=== PATIENT | female | born 1955 | race African-American/Black ===

== ENCOUNTER 2019-04-23 10:42 | Outpatient (CLI) | payer OTHER ==
--- NOTE | 2019-04-23 11:29 | MMO ---
Bilateral MAMMO Bilat Screen [facility]. CLINICAL HISTORY: Patient is 63 years old and is seen for screening. The patient has the following family history of breast cancer: maternal grandmother, malignant (generic) and maternal aunt, malignant (generic). The patient has no personal history of cancer. The patient has a history of right Excisional Biopsy more than 10 years ago - benign and left Excisional Biopsy more than 10 years ago - benign. VIEWS: The views performed were: bilateral craniocaudal with tomosynthesis and bilateral mediolateral oblique with tomosynthesis. FILMS COMPARED: The present examination has been compared to prior imaging studies performed at [facility] on 01/04/2013, 12/18/2013, 12/20/2013 and 12/31/2014. MAMMOGRAM FINDINGS: There are scattered fibroglandular densities. There is a round mass with circumscribed margins seen in the lower-inner region of the right breast. In the left breast, there are no suspicious masses, calcifications or areas of architectural distortion. IMPRESSION: MASS IN THE RIGHT BREAST REQUIRES ADDITIONAL EVALUATION. AN ULTRASOUND EXAM IS RECOMMENDED. THE RESULTS OF THIS EXAM WERE SENT TO THE PATIENT. ACR BI-RADS Category 0 - Incomplete: Need additional imaging evaluation. [facility] will notify the patient of the need for additional imaging services. MAMMOGRAPHY NOTE: 1. A negative mammogram report should not delay a biopsy if a dominant of clinically suspicious mass is present. 2. Approximately 10% to 15% of breast cancers are not detected by mammography. 3. Adenosis and dense breasts may obscure an underlying neoplasm. Reported by: CHRISTOS BURGOS MD Electonically Signed: [id number]
== END 2019-04-23 10:43 | disposition home or self-care (01) ==
LOC: BICMAMMO 10:42
PROVIDERS: ATTEND Family Medicine
DX: Z12.31 Encounter for screening mammogram for malignant neoplasm of breast (principal); N63.14 Unspecified lump in the right breast, lower inner quadrant; Z80.3 Family history of malignant neoplasm of breast
CPT/HCPCS: 77063; 77067

== ENCOUNTER 2019-05-07 10:09 | Outpatient (CLI) | payer OTHER ==
--- NOTE | 2019-05-07 11:43 | ULT ---
RIGHT BREAST ULTRASOUND LIMITED: HISTORY: The patient presents for an ultrasound examination of the right breast with attenuation to the 3 o'cl ock position as a followup to a prior mammogram 04/23/2019. FINDINGS: There is a slightly lobulated solid mass measuring 1.4 x 1.6 x 2 cm in size in the 3 o'clock region o f the right breast corresponding to the mammographic area of concern. Given that this mass was not p resent on prior mammograms, this is certainly concerning for neoplasm. IMPRESSION: BIRADS category 4, suspicious findings. Ultrasound-guided biopsy is recommended. The patient has been scheduled for the biopsy for approximately 1:[address] Dubose's office will be contacted in this regard. POS: OFF
--- NOTE | 2019-05-07 13:41 | MMO ---
Right Breast MAMMO Unilat Diag [facility]. CLINICAL HISTORY: Patient is 63 years old and is seen for diagnostic exam. The patient has the following family history of breast cancer: maternal grandmother, malignant (generic) and maternal aunt, malignant (generic). The patient has no personal history of cancer. The patient has a history of right Excisional Biopsy more than 10 years ago - benign and left Excisional Biopsy more than 10 years ago - benign. VIEWS: The views performed were: right craniocaudal with tomosynthesis and right mediolateral oblique with tomosynthesis. FILMS COMPARED: The present examination has been compared to prior imaging studies performed at [facility] on 12/20/2013, 12/31/2014, 04/23/2019 and 05/07/2019. MAMMOGRAM FINDINGS: There are scattered fibroglandular densities. IMPRESSION: FINDING IN THE RIGHT BREAST IS CONFIRMED UTILIZING POST PROCEDURE MAMMOGRAM. MASS AT 9:00. THE RESULTS OF THIS EXAM WERE SENT TO THE PATIENT. MAMMOGRAPHY NOTE: 1. A negative mammogram report should not delay a biopsy if a dominant of clinically suspicious mass is present. 2. Approximately 10% to 15% of breast cancers are not detected by mammography. 3. Adenosis and dense breasts may obscure an underlying neoplasm. Reported by: ESE LARA MD Electonically Signed: [id number]
--- NOTE | 2019-05-07 13:57 | ULT ---
EXAM: US Breast Bx US Guided Ultrasound-guided biopsy marker clip placement right breast PROVIDED CLINICAL HISTORY: Right breast mass at 3:00 position. COMPARISON: Right breast ultrasound 05/07/2019 TECHNIQUE: The procedure including the risks and complications were explained to the patient, and informed conse nt was obtained. The patient was placed on the sonography table in the supine position. Mass in the right breast was again localized at the 3:00 position. An area was marked and then meticulously prepp ed and draped in usual sterile fashion. The skin and subcutaneous tissues were infiltrated with buffered 1% lidocaine for local anesthesia. A small skin incision was made. Utilizing concurrent real-time ultrasound guidance, a total of four 14-gauge core needle biopsy specimens were obtained. A biopsy marker clip was then deployed within th e mass utilizing concurrent real-time ultrasound guidance. Hemostasis was achieved with direct pressure, and a dry sterile dressing was placed. Patient tolerate d the procedure well and without immediate complication. IMPRESSION: 1. Technically successful ultrasound-guided biopsy of right breast mass. 2. Technically successful biopsy marker clip placement right breast.
== END 2019-05-07 10:10 | disposition home or self-care (01) ==
LOC: BICULT 10:09
PROVIDERS: ATTEND Family Medicine
DX: N63.12 Unspecified lump in the right breast, upper inner quadrant (principal); N64.89 Other specified disorders of breast
CPT/HCPCS: 19083; 88305

== ENCOUNTER 2019-06-26 11:42 | Outpatient (CLI) | payer OTHER ==
[2019-06-26 13:42] LABS: #Basophils 0.1 thou/uL (0.0-0.2); #Lymphocytes 1.4 thou/uL (1.20-3.40); #Monocytes 0.4 thou/uL (0.11-0.59); #Neutrophils 3.8 thou/uL (1.40-6.50); %Basophils 1.2 % (0.0-1.0); %Eosinophils 0.1 % (0.0-10.0); %Lymphocytes 24.6 % (21.0-51.0); %Monocytes 6.4 % (0.0-10.0); %Neutrophils 67.8 % (42.0-75.0); Hemoglobin 13.7 g/dL (12.0-16.0); Mean Corpuscular HGB CONC 32.4 g/dL (32.0-36.0); Mean Corpuscular Hemoglobin 28.3 pg (27.0-31.0); Mean Corpuscular Volume 87.3 fL (78.0-98.0); Platelet Count 227 thou/uL (130-400); RBC Distribution Width 15.1 % (11.5-14.5); Red Blood Cell (RBC) Count 4.83 mill/uL (4.20-5.40); White Blood Cell (WBC) Count 5.6 thou/uL (4.8-10.8)
[2019-06-26 14:01] LABS: Anion Gap 14 mmol/L (10-20); BUN (Urea Nitrogen) 19 mg/dL (9.8-20.1); Calc. Creatinine Clearance 0 mL/min (70-130); Calcium 9.6 mg/dL (7.8-10.44); Carbon Dioxide 26 mmol/L (23-31); Chloride 106 mmol/L (98-107); Estimated GFR-MDRD 55; Glucose 82 mg/dL (80-115); Potassium 3.5 mmol/L (3.5-5.1); Sodium 142 mmol/L (136-145)
== END 2019-06-26 11:43 | disposition home or self-care (01) ==
LOC: LABBT 11:42
PROVIDERS: ATTEND Specialist
DX: Z01.818 Encounter for other preprocedural examination (principal); N63.10 Unspecified lump in the right breast, unspecified quadrant
CPT/HCPCS: 80048; 85025; 93005; 93010

== ENCOUNTER 2019-06-28 08:41 | Day surgery (SDC) | payer OTHER ==
[2019-06-26 11:52] VITALS: BMI 31.4
[2019-06-28] MEDS ORDERED: Ketorolac Tromethamine 30 MG/ML VIAL ONE (09:33)
[2019-06-28] MEDS ORDERED: Midazolam HCl 2 mg/2 ml Vial ONE (10:31)
[2019-06-28] MEDS ORDERED: Bupivacaine/Epinephrine 0.25% 30 ML VIAL ONE (10:54)
[2019-06-28] MEDS ORDERED: Fentanyl 100 MCG/2 ML VIAL ONE (11:47)
--- NOTE | 2019-06-28 14:17 | MMO ---
EXAM: Specimen radiograph HISTORY: Right breast mass COMPARISON: None FINDINGS: The round mass and clip are seen within the surgical specimen. IMPRESSION: Mass and clip seen in the surgical specimen.
--- NOTE | 2019-06-29 11:16 | OP ---
DATE OF PROCEDURE: 06/28/2019 PREOPERATIVE DIAGNOSIS: Right breast papilloma. POSTOPERATIVE DIAGNOSIS: Right breast papilloma. PROCEDURES PERFORMED: Right breast ultrasound-guided needle localization, right breast needle localized lumpectomy. ANESTHESIA: Total intravenous anesthesia with local using 0.25% Marcaine with epinephrine. INDICATIONS: The patient is a 63-year-old black female. She had a recent mammogram revealing a dense lesion in the medial right breast. Biopsy of this revealed evidence of a papillary tumor. She is taken to the operating room at this time for definitive wide local excision. No lymph node biopsy is planned. DESCRIPTION OF OPERATION: Informed consent was obtained. The patient was taken to the operating room where general anesthesia obtained with the patient in supine position. Right breast was prepped with ChloraPrep and draped in sterile fashion. Local anesthetic was infiltrated using 0.25% Marcaine with epinephrine. Ultrasound was utilized to identify the lesion at approximately the 3 o'clock radian of the right breast. Its location was marked in a grid type fashion on the anterior skin of the breast. I then passed a localizing needle in a medial to lateral fashion using ultrasound guidance. The needle was seen to go through the lesion. A transverse incision was created based on needle entry site. Dissection was carried through skin and subcutaneous tissue. Flaps were raised superiorly and inferiorly. I dissected on the medial aspect underneath the needle in a medial to lateral fashion. I dissected a wide core of tissue around the localizing wire and utilized ultrasound during the course of the dissection to ensure margins. The specimen was removed intact. It was oriented with sutures. It was then submitted for specimen mammography, which revealed that the marking clip was within the lesion and there appeared to be good margins around it. Meticulous hemostasis was obtained within the wound. It was closed in layers with 3-0 and 4-0 Monocryl and additional local anesthetic was infiltrated during closure. Dermabond was placed externally on the skin. There were no complications. The patient tolerated the procedure well and was taken to recovery room in stable condition. Job ID: [id number]
== END 2019-06-28 14:35 | disposition home or self-care (01) ==
LOC: SDC 08:41
PROVIDERS: ATTEND Specialist
PROC: 0HBT0ZZ Excision of Right Breast, Open Approach (ICD-10-PCS; principal; 2019-06-28)
DX: D05.11 Intraductal carcinoma in situ of right breast (principal); I10 Essential (primary) hypertension; G43.909 Migraine, unspecified, not intractable, without status migrainosus; Z79.899 Other long term (current) drug therapy; Z88.6 Allergy status to analgesic agent; Z88.8 Allergy status to other drugs, medicaments and biological substances; Z98.890 Other specified postprocedural states
CPT/HCPCS: 76098; 88307; 88341; 88342; J0131; J0690; J1885; J2250; J3010

== ENCOUNTER 2019-08-16 15:27 | Outpatient (CLI) | payer OTHER ==
--- NOTE | 2019-08-16 15:56 | BD ---
EXAM: DEXA bone density examination HISTORY: Postmenopausal state; osteophyte versus screening COMPARISON: None FINDINGS: L1--bone mineral density 1.042 g/sq cm; T score 0.5. Z score 2.0 L2--bone mineral density 1.065 g/sq cm; T score 0.3; Z score 2.1 L3--bone mineral density 1.147 g/sq cm; T score 0.6; Z score 2.4 L4--bone mineral density 1.140 g/sq cm; T score 0.7, Z score 2.6 Total L1-L4--bone mineral density 1.100 g/sq cm; T score 0.5, Z score 2.2 Left femoral neck--bone mineral density0.940; T score 0.8, Z score 2.3 Total proximal left femur--bone mineral density 1.068; T score 1.0, Z score 2.2 IMPRESSION: Based on the WHO criteria, the patient's bone mineral density is consideredNormal. The p atient is at low risk for fracture.
== END 2019-08-16 15:28 | disposition home or self-care (01) ==
LOC: BICMAMMO 15:27
PROVIDERS: ATTEND Internal Medicine
DX: Z13.820 Encounter for screening for osteoporosis (principal); C50.919 Malignant neoplasm of unspecified site of unspecified female breast; Z78.0 Asymptomatic menopausal state
CPT/HCPCS: 77080

== ENCOUNTER 2020-06-16 09:56 | Outpatient (CLI) | payer MEDICARE ==
--- NOTE | 2020-06-16 10:28 | MMO ---
Bilateral MAMMO Bilat Diag [facility]. CLINICAL HISTORY: Patient is 64 years old and is seen for diagnostic exam. The patient has the following family history of breast cancer: maternal grandmother, malignant (generic) and maternal aunt, malignant (generic). 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 The patient has a history of right Lumpectomy in June, - dcis, right Ultrasound Guided Core Biopsy in April, - dcis, left Excisional Biopsy more than 10 years ago - benign and right Excisional Biopsy more than 10 years ago - benign. VIEWS: The views performed were: bilateral craniocaudal with tomosynthesis; bilateral mediolateral oblique with tomosynthesis; and bilateral mediolateral with tomosynthesis. FILMS COMPARED: The present examination has been compared to prior imaging studies performed at [facility] on 12/31/2014, 04/23/2019 and 05/07/2019. This study has been interpreted with the assistance of computer-aided detection. MAMMOGRAM FINDINGS: There are scattered fibroglandular densities. Benign calcifications are noted bilaterally. There are right post-operative changes. There are no suspicious masses, suspicious calcifications, or new areas of architectural distortion. IMPRESSION: THERE IS NO MAMMOGRAPHIC EVIDENCE OF MALIGNANCY. A ROUTINE FOLLOW-UP MAMMOGRAM IN 1 YEAR IS RECOMMENDED. THE RESULTS OF THIS EXAM WERE SENT TO THE PATIENT. ACR BI-RADS Category 2 - Benign finding MAMMOGRAPHY NOTE: 1. A negative mammogram report should not delay a biopsy if a dominant of clinically suspicious mass is present. 2. Approximately 10% to 15% of breast cancers are not detected by mammography. 3. Adenosis and dense breasts may obscure an underlying neoplasm. Reported by: DAMARIS BOURGEOIS MD Electonically Signed: [id number]
== END 2020-06-16 09:57 | disposition home or self-care (01) ==
LOC: BICMAMMO 09:56
PROVIDERS: ATTEND Specialist
DX: D05.10 Intraductal carcinoma in situ of unspecified breast (principal)
CPT/HCPCS: 77066; G0279

== ENCOUNTER 2020-08-18 14:58 | Outpatient (CLI) | payer MEDICARE ==
--- NOTE | 2020-08-18 15:26 | BD ---
EXAM: Bone densitometry using DEXA HISTORY: 64 yo female. Screening for postmenopausal osteoporosis FINDINGS: L1--bone mineral density 1.029 g/sq cm; T score 0.4 ; Z score 2.0 L2--bone mineral density 1.032 g/sq cm; T score 0.0 ; Z score 1.8 L3--bone mineral density 1.143 g/sq cm; T score 0.5 ; Z score 2.4 L4--bone mineral density 1.115 g/sq cm; T score 0.5 ; Z score 2.4 Total L1-L4--bone mineral density 1.083 g/sq cm; T score 0.3 ; Z score 2.1 Left femoral neck--bone mineral density0.970; T score 1.1 ; Z score 2.6 Total proximal left femur--bone mineral density 1.073; T score 1.1 ; Z score 2.3 There has been an interval reduction of 1.6% in the BMD of the lumbar spine and a improvement of 0. 4% in the BMD of the proximal femur since the previous study of 08/16/2019. IMPRESSION: Normal BMD
== END 2020-08-18 14:59 | disposition home or self-care (01) ==
LOC: BICMAMMO 14:58
PROVIDERS: ATTEND Internal Medicine Hematology & Oncology
DX: Z13.820 Encounter for screening for osteoporosis (principal); Z78.0 Asymptomatic menopausal state
CPT/HCPCS: 77080

== ENCOUNTER 2021-06-19 10:02 | Outpatient (CLI) | payer MEDICARE | END 2021-06-19 10:03 | disposition home or self-care (01) | LOC: BICMAMMO 10:02 | PROVIDERS: ATTEND Specialist | DX: Z09 Encounter for follow-up examination after completed treatment for conditions other than malignant neoplasm (principal); Z86.000 Personal history of in-situ neoplasm of breast | CPT/HCPCS: 77066; G0279 ==

== ENCOUNTER 2021-08-21 10:50 | Outpatient (CLI) | payer MEDICARE | END 2021-08-21 10:51 | disposition home or self-care (01) | LOC: BICMAMMO 10:50 | PROVIDERS: ATTEND Internal Medicine | DX: Z13.820 Encounter for screening for osteoporosis (principal); C50.111 Malignant neoplasm of central portion of right female breast; Z79.811 Long term (current) use of aromatase inhibitors | CPT/HCPCS: 77080 ==

== ENCOUNTER 2022-06-21 10:48 | Outpatient (CLI) | payer MEDICARE | END 2022-06-21 10:49 | disposition home or self-care (01) | LOC: BICMAMMO 10:48 | PROVIDERS: ATTEND Specialist | DX: Z12.31 Encounter for screening mammogram for malignant neoplasm of breast (principal); Z85.3 Personal history of malignant neoplasm of breast; Z80.3 Family history of malignant neoplasm of breast | CPT/HCPCS: 77063; 77067 ==

== ENCOUNTER 2022-09-17 12:50 | Outpatient (CLI) | payer MEDICARE | END 2022-09-17 12:51 | disposition home or self-care (01) | LOC: BICMAMMO 12:50 | PROVIDERS: ATTEND Internal Medicine Hematology & Oncology | DX: Z13.820 Encounter for screening for osteoporosis (principal); C50.111 Malignant neoplasm of central portion of right female breast; T38.6X5A Adverse effect of antigonadotrophins, antiestrogens, antiandrogens, not elsewhere classified, initial encounter | CPT/HCPCS: 77080 ==

== ENCOUNTER 2023-07-01 11:37 | Outpatient (CLI) | payer MEDICARE | END 2023-07-01 11:38 | disposition home or self-care (01) | LOC: BICMAMMO 11:37 | PROVIDERS: ATTEND Specialist | DX: Z12.31 Encounter for screening mammogram for malignant neoplasm of breast (principal); Z80.3 Family history of malignant neoplasm of breast; Z86.000 Personal history of in-situ neoplasm of breast; Z91.89 Other specified personal risk factors, not elsewhere classified; Z98.890 Other specified postprocedural states | CPT/HCPCS: 77063; 77067 ==

== ENCOUNTER 2023-10-20 13:59 | Outpatient (CLI) | payer MEDICARE | END 2023-10-20 14:00 | disposition home or self-care (01) | LOC: BICMAMMO 13:59 | PROVIDERS: ATTEND Internal Medicine Hematology & Oncology | DX: Z13.820 Encounter for screening for osteoporosis (principal); C50.111 Malignant neoplasm of central portion of right female breast; Z78.0 Asymptomatic menopausal state | CPT/HCPCS: 77080 ==

== ENCOUNTER 2025-07-04 12:17 | Outpatient (CLI) | payer MEDICARE | END 2025-07-04 12:18 | disposition home or self-care (01) | LOC: BICMAMMO 12:17 | PROVIDERS: ATTEND Specialist | DX: Z12.31 Encounter for screening mammogram for malignant neoplasm of breast (principal); Z80.3 Family history of malignant neoplasm of breast; Z86.000 Personal history of in-situ neoplasm of breast; Z98.890 Other specified postprocedural states; Z91.89 Other specified personal risk factors, not elsewhere classified | CPT/HCPCS: 77063; 77067 ==